=== PATIENT | male | born 1990 | race African-American/Black ===

== ENCOUNTER 2019-08-08 13:01 | Emergency (ER) | payer OTHER ==
[2019-08-08 13:22] VITALS: BP 119/71; PULSE 71; TEMP 98.3; BMI 17.6
[2019-08-08] MEDS ORDERED: IBUPROFEN 600 MG TABLET (FP) PO ONE ×2 (13:38→13:42)
[2019-08-08] MEDS ORDERED: CYCLOBENZAPRINE HCL 10 MG TABLET (FP) PO ONE (13:39)
[2019-08-08] MEDS ORDERED: CYCLOBENZAPRINE HCL 10 MG TABLET (FP) ONE (13:42)
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
== END 2019-08-08 13:59 | disposition home or self-care (01) ==
LOC: JERFT 13:01
DX: R51 Headache (principal); M79.602 Pain in left arm; M79.605 Pain in left leg; V43.52XA Car driver injured in collision with other type car in traffic accident, initial encounter; Y92.414 Local residential or business street as the place of occurrence of the external cause; Y93.89 Activity, other specified; Y99.8 Other external cause status
CPT/HCPCS: 99281-25